=== PATIENT | female | born 1980 | race Caucasian/White ===

== ENCOUNTER 2018-12-18 16:30 | Outpatient (RCR) | payer BC, SELFPAY | END 2018-12-18 16:35 | disposition home or self-care (01) | LOC: PT 16:30 | PROVIDERS: Visit Provider Student in an Organized Health Care Education/Training Program | DX: M25.562 Pain in left knee (principal) | CPT/HCPCS: 97010; 97014; 97110; 97163; 97164; G0283 ==

== ENCOUNTER 2023-02-27 16:00 | Outpatient (RCR) | payer BC, SELFPAY | END 2023-02-27 16:05 | disposition home or self-care (01) | LOC: PT 16:00 | PROVIDERS: Visit Provider Orthopaedic Surgery | DX: M25.562 Pain in left knee (principal) | CPT/HCPCS: 97010; 97014; 97035; 97110; 97163; 97164; 97530; G0283 ==